=== PATIENT | male | born 1995 | race Two or more races ===

== ENCOUNTER 2019-03-31 08:58 | Emergency (ER) | payer MEDICAID ==
[~2019-03-31] VITALS: Ht 175.3 cm; Wt 86.2 kg
[~2019-03-31 08:58] MED LIST: DICY20TA66 PO; OMEP20CA74 PO; SUCR1TAB38 OR; TRAM-297 PO
[2019-03-31 10:24] VITALS: BP 123/87
== END 2019-03-31 11:24 | disposition home or self-care (01) ==
LOC: ER 09:00
DX: L60.0 Ingrowing nail (principal); Z79.899 Other long term (current) drug therapy

== ENCOUNTER 2020-06-11 06:34 | Emergency (ER) | payer MEDICAID ==
[~2020-06-11] VITALS: Ht 180.3 cm; Wt 79.4 kg
[~2020-06-11 06:34] MED LIST changes: +DICY20TA PO; -DICY20TA66 PO; +SUCR1TAB22 OR; -SUCR1TAB38 OR
[2020-06-11 07:27] VITALS: BP 116/62
[2020-06-11] MEDS ORDERED: SODIUM CHLORIDE 0.9% 1,000 ML IV ONE (07:45)
[2020-06-11] MEDS ORDERED: ONDANSETRON HCL 4 MG/2 ML VIAL IV ONE (08:00)
[2020-06-11 08:10] LABS: Basophils # (auto) 0.1 10 ^3/uL (0-0.2); Eosinophils # (auto) 0.1 10 ^3/uL (0-0.8); Eosinophils % (auto) 0.6 % (0.0-7.0); Hematocrit 39.6 % (41.0-53.0); Hemoglobin 13.4 g/dL (13.5-17.5); Lymphocytes # (auto) 2.2 10 ^3/uL (0.4-5.4); Lymphocytes % (auto) 23.7 % (10.0-50.0); Mean Corpuscular Hemoglobin 31.6 pg (28.0-32.0); Mean Corpuscular Hgb Conc. 33.9 g/dL (32.0-36.0); Mean Corpuscular Volume 93.2 fL (80.0-100.0); Monocytes # (auto) 0.6 10 ^3/uL (0-1.3); Monocytes % (auto) 6.8 % (0.0-12.0); Neutrophils # (auto) 6.3 10 ^3/uL (1.6-8.6); Neutrophils % (auto) 67.9 % (37.0-80.0); Nucleated Red Blood Cells % 0.1 %; Platelet Count (auto) 416 10^3/uL (140-450); Red Blood Cells 4.25 10^6/uL (4.5-5.90); White Blood Cell 9.4 10^3/uL (4.4-10.8)
[2020-06-11 08:39] LABS: Albumin 3.9 g/dL (3.4-5.0); Calcium 9.3 mg/dL (8.5-10.1); Potassium 3.4 mmol/L (3.5-5.1)
[2020-06-11 08:42] LABS: BUN/Creatinine Ratio 25.6; Bilirubin, Total 0.4 mg/dL (0.2-1.0); Total Protein 7.6 g/dL (6.4-8.2)
== END 2020-06-11 09:17 | disposition home or self-care (01) ==
LOC: ER 06:34
DX: K29.70 Gastritis, unspecified, without bleeding (principal)
CPT/HCPCS: 36415; 74176; 80053; 82150; 83690; 85025; 96361; 96374; 99284; J2405; J7030

== ENCOUNTER 2021-09-29 13:03 | Inpatient (IN) | payer MEDICAID ==
[~2021-09-29] VITALS: Ht 175.3 cm; Wt 87.8 kg
[2021-09-29 13:54] LABS: Basophils # (auto) 0.1 10 ^3/uL (0-0.2); Basophils % (auto) 0.9 % (0.0-2.0); Eosinophils # (auto) 0.1 10 ^3/uL (0-0.8); Eosinophils % (auto) 0.9 % (0.0-7.0); Hematocrit 42.9 % (41.0-53.0); Hemoglobin 14.8 g/dL (13.5-17.5); Lymphocytes # (auto) 1.2 10 ^3/uL (0.4-5.4); Lymphocytes % (auto) 15.3 % (10.0-50.0); Mean Corpuscular Hemoglobin 32.6 pg (28.0-32.0); Mean Corpuscular Hgb Conc. 34.6 g/dL (32.0-36.0); Mean Corpuscular Volume 94.1 fL (80.0-100.0); Monocytes # (auto) 0.3 10 ^3/uL (0-1.3); Monocytes % (auto) 4.3 % (0.0-12.0); Neutrophils # (auto) 5.9 10 ^3/uL (1.6-8.6); Neutrophils % (auto) 78.6 % (37.0-80.0); Red Blood Cells 4.56 10^6/uL (4.5-5.90); Red Cell Distribution Width 12.3 % (11.8-14.3); White Blood Cell 7.5 10^3/uL (4.4-10.8)
[2021-09-29 14:05] LABS: Albumin 4.2 g/dL (3.4-5.0); Potassium 4.1 mmol/L (3.5-5.1)
[2021-09-29 14:15] LABS: Bilirubin, Total 0.5 mg/dL (0.2-1.0); Total Protein 7.7 g/dL (6.4-8.2)
[2021-09-29 15:12] LABS: Urine Bacteria FEW /hpf (None Seen); Urine Blood Negative /uL (Negative); Urine Mucus FEW (None Seen); Urine Specific Gravity 1.022 (1.001-1.035); Urine WBC <1 /hpf (0 - 3)
[2021-09-29 15:13] LABS: BUN/Creatinine Ratio 18.1
[2021-09-29] MEDS ORDERED: MORPHINE SULFATE 4 MG/ML SYR/VIAL IV ONE (16:00)
[2021-09-29] MEDS ORDERED: SODIUM CHLORIDE 0.9% 1,000 ML IVB ONE (16:00)
[2021-09-29] MEDS ORDERED: ONDANSETRON HCL 4 MG/2 ML VIAL IV ONE (16:00)
[2021-09-29] MEDS ORDERED: PIPERACILLIN-TAZOB 3.375GM 100 ML IV ONE (16:00)
[2021-09-29] MEDS ORDERED: MORPHINE SULFATE 4 MG/ML SYR/VIAL IV PRN ×2 (16:15→19:00)
[2021-09-29] MEDS ORDERED: NITROGLYCERIN 0.4 MG SL TAB SL PRN (16:15)
[2021-09-29] MEDS ORDERED: ONDANSETRON HCL 4 MG/2 ML VIAL IV PRN ×2 (16:15→19:00)
[2021-09-29] MEDS ORDERED: TEMAZEPAM 15 MG CAP PO PRN (16:15)
[2021-09-29] MEDS ORDERED: ACETAMINOPHEN 325 MG TAB PO PRN (16:15)
[2021-09-29] MEDS ORDERED: MORPHINE SULFATE INJECTION 2 MG/ML SYRG IV PRN (16:15)
[2021-09-29 16:40] LABS: INR 0.98 (0.9-1.15); Partial Thromboplastin Time 31.1 sec (23.6-33.0)
[2021-09-29] MEDS ORDERED: ceFAZolin 1GM/50ML 100 ML IV ONE (18:09)
[2021-09-29] MEDS ORDERED: LIDOCAINE 1% HCL (LOCAL ANESTH.) INJ 20ML MDV ONE (18:14)
[2021-09-29] MEDS ORDERED: SUCCINYLCHOLINE CHLORIDE 20 MG/ML 10ML VIAL IV ONE (18:20)
[2021-09-29] MEDS ORDERED: fentaNYL CITRATE 100 MCG/2 ML VL ONE (18:28)
[2021-09-29] MEDS ORDERED: MEPERIDINE HCL (50 MG/ML) 1 ML VIAL ONE (18:28)
[2021-09-29] MEDS ORDERED: MIDAZOLAM HCL 2MG/2ML 2ml VIAL (1mg/ml) ONE (18:29)
[2021-09-29] MEDS ORDERED: diphenhdrAMINE HCL 50 MG/1 ML VL ONE (18:58)
[2021-09-29] MEDS ORDERED: DexAMETHasone SOD PHOS 10MG/1ML VIAL INJ ONE (18:58)
[2021-09-29] MEDS ORDERED: ROCURONIUM 10MG/ML 10ML VIAL IV ONE (18:59)
[2021-09-29] MEDS ORDERED: LABETALOL HCL 5 MG/ML 4ML SYRINGE IV PRN (19:00)
[2021-09-29] MEDS ORDERED: ePHEDrine SULFATE 50 MG/ML AMP IV PRN (19:00)
[2021-09-29] MEDS ORDERED: KETOROLAC TROMETH 30 MG/ML 1ML VIAL IV ONE (19:00)
[2021-09-29] MEDS ORDERED: MIDAZOLAM HCL 2MG/2ML 2ml VIAL (1mg/ml) IV PRN (19:00)
[2021-09-29] MEDS ORDERED: ONDANSETRON HCL 4 MG/2 ML VIAL ONE (19:09)
[2021-09-29] MEDS: HYDROmorphone HCL 2 MG/ML VL IV PRN ×4 (19:55→20:20)
[2021-09-29] MEDS: SODIUM CHLORIDE 0.9% 1,000 ML IV SCH (21:51)
[2021-09-29 22:00] VITALS: BP 138/82
[2021-09-29 23:38] VITALS: BP 138/82
[2021-09-29] MEDS ORDERED: HYDR-4798 PO (23:55)
[2021-09-29] MEDS ORDERED: ALBU108A5 INH (23:56)
[2021-09-29] MEDS ORDERED: TRAZ50TA2 PO (23:56)
[2021-09-29] MEDS ORDERED: PREG200C19 PO (23:56)
[2021-09-29] MEDS ORDERED: BECL80AE11 INH (23:56)
[2021-09-30] MEDS: SODIUM CHLORIDE 0.9% 1,000 ML IV SCH ×3 (00:35→17:15)
[2021-09-30] MEDS: HYDROcodone-ACET 5/325MG TAB PO PRN ×3 (03:46→23:54)
[2021-09-30 05:00] VITALS: BP 104/56
[2021-09-30 05:38] LABS: Basophils # (auto) 0 10 ^3/uL (0-0.2); Basophils % (auto) 0.1 % (0.0-2.0); Eosinophils # (auto) 0 10 ^3/uL (0-0.8); Hematocrit 39.9 % (41.0-53.0); Hemoglobin 14.3 g/dL (13.5-17.5); Lymphocytes # (auto) 0.7 10 ^3/uL (0.4-5.4); Lymphocytes % (auto) 6.6 % (10.0-50.0); Mean Corpuscular Hemoglobin 33.2 pg (28.0-32.0); Mean Corpuscular Hgb Conc. 35.8 g/dL (32.0-36.0); Mean Corpuscular Volume 92.9 fL (80.0-100.0); Monocytes # (auto) 0.1 10 ^3/uL (0-1.3); Monocytes % (auto) 1.3 % (0.0-12.0); Neutrophils # (auto) 9.8 10 ^3/uL (1.6-8.6); Red Blood Cells 4.29 10^6/uL (4.5-5.90); Red Cell Distribution Width 12.2 % (11.8-14.3); White Blood Cell 10.7 10^3/uL (4.4-10.8)
[2021-09-30 05:50] LABS: Potassium 4.2 mmol/L (3.5-5.1)
[2021-09-30 05:55] LABS: Albumin 3.5 g/dL (3.4-5.0); BUN/Creatinine Ratio 14.7; Calcium 9.1 mg/dL (8.5-10.1)
[2021-09-30 05:58] LABS: Bilirubin, Total 0.7 mg/dL (0.2-1.0); Total Protein 6.9 g/dL (6.4-8.2)
[2021-09-30] MEDS: PIPERACILLIN-TAZOB 3.375GM 100 ML IV SCH ×4 (08:00→23:54)
[2021-09-30 09:00] VITALS: BP 107/59
[2021-09-30 12:30] VITALS: BP 121/67
[2021-09-30] MEDS ORDERED: GLYCOPYRROLATE 0.2 MG/ML 1ML VIAL IV ONE (13:11)
[2021-09-30] MEDS ORDERED: NEOSTIGMINE 1 MG/ML INJ (10mg/10ML VIAL) IV ONE (13:12)
[2021-09-30] MEDS: MORPHINE SULFATE INJECTION 2 MG/ML SYRG IV PRN ×2 (14:00→19:03)
[2021-09-30 17:00] VITALS: BP 115/71
[2021-09-30] MEDS: PREGABALIN CAPSULE 75 MG CAP PO SCH (18:00)
[2021-09-30] MEDS: PREGABALIN 25 MG CAP PO SCH (18:00)
[2021-09-30] MEDS ORDERED: ALBUTEROL SULF 2.5 MG/0.5ML(0.5%) NEB SOLN NEB PRN (20:30)
[2021-09-30 22:00] VITALS: BP 107/69
[2021-09-30] MEDS: BUDESONIDE (INHALATION) 0.5 MG/2 ML NEB NEB SCH (22:41)
[2021-10-01 03:16] VITALS: BP 107/69
[2021-10-01 05:00] VITALS: BP 101/67
[2021-10-01] MEDS: HYDROcodone-ACET 5/325MG TAB PO PRN (06:31)
[2021-10-01] MEDS: PREGABALIN CAPSULE 75 MG CAP PO SCH (06:37)
[2021-10-01] MEDS: PREGABALIN 25 MG CAP PO SCH (07:48)
[2021-10-01] MEDS: PIPERACILLIN-TAZOB 3.375GM 100 ML IV SCH (08:00)
[2021-10-01 09:32] VITALS: BP 120/65
[2021-10-01] MEDS: BUDESONIDE (INHALATION) 0.5 MG/2 ML NEB NEB SCH (10:41)
[2021-10-01 12:00] VITALS: BP 108/80
[2021-10-01 14:14] VITALS: BP 108/80
== END 2021-10-01 16:30 | disposition home or self-care (01) | DRG 234 ==
LOC: ER 13:03 → OVERFLOW 16:03 → TELE-WESTW 20:45 → WEST WING 21:07
PROVIDERS: ADMIT Internal Medicine; ATTEND Internal Medicine
PROC: 0DTJ4ZZ Resection of Appendix, Percutaneous Endoscopic Approach (ICD-10-PCS; principal; 2021-09-29 18:30)
DX: K35.80 Unspecified acute appendicitis (principal); R30.0 Dysuria; Z20.822 Contact with and (suspected) exposure to COVID-19; Z80.1 Family history of malignant neoplasm of trachea, bronchus and lung; Z80.3 Family history of malignant neoplasm of breast; Z80.42 Family history of malignant neoplasm of prostate; Z80.8 Family history of malignant neoplasm of other organs or systems; Z81.8 Family history of other mental and behavioral disorders; Z82.0 Family history of epilepsy and other diseases of the nervous system; Z82.3 Family history of stroke; Z82.49 Family history of ischemic heart disease and other diseases of the circulatory system; Z82.5 Family history of asthma and other chronic lower respiratory diseases; Z82.62 Family history of osteoporosis; Z83.3 Family history of diabetes mellitus
CPT/HCPCS: 36415; 71045; 74176; 80053; 81001; 82150; 83690; 85025; 85610; 85730; 94640; 96365; 96375; G0378; J0330; J0690; J1100; J1885; J2001; J2250; J2405; J2543